=== PATIENT | male | born 1955 | race Caucasian/White ===

== ENCOUNTER 2023-02-09 08:22 | Day surgery (SDC) | payer MEDICARE, OTHER ==
[2023-02-03 10:25] VITALS: BP 141/77
[~2023-02-09] VITALS: Ht 190.5 cm; Wt 138.0 kg
[~2023-02-09 08:22] MED LIST: AMLODIPINE BESY10 MG PO; ASPIRIN81 MG PO; ATENOLOL100 MG PO; ATORVASTATIN CA40 MG PO; BICALUTAMIDE50 MG PO; CHANTIX0.5 MG PO; CLEOCIN HCL300 MG PO; CYCLOBENZAPRINE10 MG PO; DEXAMETHASONE4 MG PO; FISH OIL 1,0001 EAC2 NG; FLOVENT DISKUS50 MCG INH; LISINOPRIL-HCT1 EACH PO; LISINOPRIL40 MG PO; LUPRON DEPOT11.25 MG IM; MONTELUKAST SOD10 MG PO; NORCO 7.5-3251 EACH PO; ONDANSETRON ODT8 MG PO; PREDNISONE20 MG PO; SERTRALINE HCL100 MG PO; SPIRIVA RESPIMAT4 G1; SPIRIVA RESPIMAT4 GM INH; SPIRIVA18 MCG INH; SYMBICORT 16010.2 GM INH; TOBRADEX EYE DRO5 ML OPTH; TOBRADEX EYE O3.5 GM OPTH; TRELEGY ELLIPT1 EAC1 IH; VENTOLIN HFA18 GM INH; VITAMIN C1000 M1 PO; VITAMIN C1000 M2 PO; XGEVA120 MG/1.7 SUB-Q; ZOLOFT100 MG PO; ZYTIGA500 MG PO
[2023-02-09 08:34] VITALS: BP 147/95
[2023-02-09] MEDS ORDERED: HYDROCHLOROTH12.5 M1 (08:38)
--- NOTE | 2023-02-09 10:51 | NUR ---
assisted to br. updated on wait. iv patent. warm blankets on.
--- NOTE | 2023-02-09 12:10 | NUR ---
up to br conts to wait. updated on wait.
[2023-02-09 13:47] VITALS: BP 104/73
--- NOTE | 2023-02-09 14:09 | NUR ---
02/09/23 1409 Nikki Gonzalez 1311 PT ARRIVED IN PACU NON RESPONSIVE TO NOXIOUS STIMULI WITH OPA IN PLACE. CHIN LIFT HELD BY RN. ABD SOFT. 1318 PT REACTIVE. OPA REMOVED. 1325 PT REPOSITIONED IN BED. PASSING FLATUS. 1345 SITTING UP IN BED SIPPING ON WATER. 1401 DC INSTRUCTIONS GIVEN. ALL QUESTIONS ANSWERED. LEFT VIA W/C.
--- NOTE | 2023-02-11 14:11 | OR ---
[facility] [address], [place] [address] Signed DATE OF OPERATION: 02/09/2023 SURGEON: Maeve Bowen MD PREOPERATIVE DIAGNOSES: 1. History of serrated adenoma of right colon 2021. 2. History of additional polyps including hyperplastic polyps. POSTOPERATIVE DIAGNOSES: 1. Sigmoid diverticulosis. 2. Left colon polyps x2 and rectosigmoid polyps x4. PROCEDURE: Total colonoscopy to the cecum with cold snare polypectomy x1 and cold morcellation polypectomy x4. ANESTHESIA: Intravenous sedation, propofol infusion, Maeve Adames CRNA INDICATIONS: This 67-year-old white man is a patient of Efrain Bright and known to me from the past having undergone colonoscopy in 2021, noting a serrated adenoma of the right colon as well as a transverse colonic adenoma and two hyperplastic polyps of the sigmoid. He has no symptoms of bleeding, diarrhea or constipation and no family history of colon cancer. 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 He is admitted at this time to undergo surveillance colonoscopy on the basis of the finding of serrated adenoma previously. The risk of bleeding, infection, and perforation were reviewed with him. He understood and wished to proceed. FINDINGS: The prep was adequate though not great. Irrigation was required throughout. Complete colonoscopy was undertaken to the cecum. There was no sign of right-sided or transverse colonic polyps, but he did have two left-sided colonic polyps and several rectosigmoid polyps likely hyperplastic. In aggregate, one was snared, three were excised with cold morcellation technique. DESCRIPTION OF PROCEDURE: The patient was brought to the endoscopy suite and placed in the lateral decubitus position, given intravenous sedation with propofol infusional technique with full Electronically Signed By: MAEVE BOWEN MD 02/11/23 1411 PATIENT NAME: ADAM DUNCAN OPERATIVE REPORT DATE OF : 57 REPORT #: [id number] PHYSICIAN: MAEVE BOWEN MD PCP: EFRAIN BRIGHT PAC REPORT IS CONFIDENTIAL AND NOT TO BE RELEASED WITHOUT AUTHORIZATION [facility] [address], [place] [address] Signed cardiopulmonary monitoring by the manual arts teacher. A digital rectal examination was normal. An Olympus video colonoscope was passed in the rectum and manipulated throughout the colon noting diverticulosis of the sigmoid. Irrigation was required throughout as prep was not optimal. Scope was ultimately advanced to the cecum. Ileocecal valve was not intubated. Elevation of mucosa behind the ileocecal valve showed no sign of adenomatous finding. The scope was then withdrawn and copious irrigation undertaken throughout upon withdrawal of the scope. There was no sign of abnormality in the right colon or transverse colon. In the left colon, there were small polyps, possibly hyperplastic, one excised with cold snare technique, the other with cold morcellation technique. Diverticula were once again seen in the sigmoid. Scope was withdrawn to the rectosigmoid where small polyps were noted, whether adenomatous or hyperplastic was uncertain. They were excised with cold morcellation technique, in aggregate four polyps were sent for pathology. Retroflexed view was otherwise normal. Scope was removed and the patient was taken to the recovery room in good condition. CONCLUDING DIAGNOSIS: Hyperplastic appearing polyps of rectosigmoid and possibly left colon and sigmoid. PLAN: Recommend repeat colonoscopy in two years, sooner if clinically indicated. We will review his pathology reports to assure there is no sign of serrated adenoma. He will return to the ongoing care of VARSHA Leach. MD CALISTA Conner/MACIEL /[id number] cc: VARSHA Leach Copies: ~ Electronically Signed By: MAEVE BOWEN MD 02/11/23 1411 PATIENT NAME: ADAM DUNCAN OPERATIVE REPORT DATE OF : 57 REPORT #: [id number] PHYSICIAN: MAEVE BOWEN MD PCP: EFRAIN BRIGHT PAC REPORT IS CONFIDENTIAL AND NOT TO BE RELEASED WITHOUT AUTHORIZATION
--- NOTE | 2023-02-12 16:49 | PATH ---
[facility] [address] [facility] [place], [place] [address] Signed SPECIMEN(S): A DESCENDING/LEFT COLON POLYP SPECIMEN(S): B RECTAL POLYP SPECIMEN SOURCE: A. DESCENDING/LEFT COLON POLYP B. RECTAL POLYP CLINICAL HISTORY: Hx colon polyps, hx prostate ca. Rectal and colon polyp. FINAL PATHOLOGIC DIAGNOSIS: A. Descending / left colon polyp: - Tubular adenoma (one fragment). B. Rectal polyp: - Hyperplastic polyp (multiple fragments). JVR:[facility] MICROSCOPIC EXAMINATION: Histologic sections of all submitted blocks are examined by light microscopy. These findings, together with the gross examination, support the pathologic diagnosis. GROSS DESCRIPTION: A. The specimen, labeled and designated "Jeremy, descending colon polyp," is received in formalin and consists of two duran soft tissue fragments, ranging from 0.1-0.2 cm. Entirely submitted in (A1). B. The specimen, labeled and designated "Jeremy, rectum polyp," is received in formalin and consists of three duran soft tissue fragments, ranging from 0.2-0.3 cm. Entirely submitted in (B1). JS (under the direct supervision of a pathologist) The Gross Description was prepared using a voice recognition system. The report was reviewed for accuracy; however, sound-alike word errors, addition and/or deletions may occur. If there is any question about this report, please contact Client Services. PERFORMING LABORATORY: Technical component was performed by [employer], [address] [place] [id number] (CLIA# [id number]). Professional interpretation was performed by [facility], [address] [place] [address], [place] [address] (CLIA#: [id number]). PATIENT NAME: ADAM DUNCAN PATHOLOGY DATE OF : 57 REPORT #: [id number] PHYSICIAN: [facility] PCP: EFRAIN BRIGHT PAC REPORT IS CONFIDENTIAL AND NOT TO BE RELEASED WITHOUT AUTHORIZATION [address] [address] Signed Diagnostician: Geoff Caicedo MD Pathologist Electronically Signed 02/12/2023 Copies: ~ PATIENT NAME: ADAM DUNCAN PATHOLOGY DATE OF : 57 REPORT #: [id number] PHYSICIAN: [facility] PCP: EFRAIN BRIGHT PAC REPORT IS CONFIDENTIAL AND NOT TO BE RELEASED WITHOUT AUTHORIZATION
== END 2023-02-09 14:01 | disposition home or self-care (01) ==
LOC: DS 08:22 → OPS 08:22 → DS 10:00 → OPS 14:01
PROVIDERS: ATTEND Surgery
PROC: 0DBN8ZZ Excision of Sigmoid Colon, Via Natural or Artificial Opening Endoscopic (ICD-10-PCS; 2023-02-09)
PROC: 0DBM8ZZ Excision of Descending Colon, Via Natural or Artificial Opening Endoscopic (ICD-10-PCS; principal; 2023-02-09 09:30)
DX: Z12.11 Encounter for screening for malignant neoplasm of colon (principal); Z86.010 Personal history of colon polyps; K57.30 Diverticulosis of large intestine without perforation or abscess without bleeding; J45.909 Unspecified asthma, uncomplicated; C61 Malignant neoplasm of prostate; I10 Essential (primary) hypertension; D12.4 Benign neoplasm of descending colon; K62.1 Rectal polyp
CPT/HCPCS: 00811; J2371; J2704; J7121